=== PATIENT | female | born 1990 | race Caucasian/White ===

== ENCOUNTER 2017-07-05 20:47 | Emergency (ER) | payer OTHER ==
[2017-07-05 21:43] LABS: BASOPHIL % 0.3 % (0-2); PLATELET COUNT 235 x10^3mcL (130-400); RED CELL DISTRIBUTION WIDTH 12.9 % (11.5-14.5)
[2017-07-05 21:47] LABS: CALCIUM 8.3 mg/dL (8.5-10.1); CARBON DIOXIDE 26.7 mmol/L (21-32); CHLORIDE SERUM 103 mmol/L (98-107); CREATININE SERUM 0.7 mg/dL (0.6-1.0); GFR1 > 60 mL/min; GLUCOSE SERUM 106 mg/dL (74-106); POTASSIUM SERUM 3.3 mmol/L (3.5-5.1); SODIUM SERUM 138 mmol/L (136-145)
[2017-07-05 21:51] LABS: ALBUMIN 3.6 g/dL (3.4-5.0); ALKALINE PHOSPHATASE 86 U/L (46-116); ALT/SGPT 14 U/L (14-59); AMYLASE 26 U/L (25-115); AST/SGOT 14 U/L (15-37); BILIRUBIN TOTAL 0.7 mg/dL (0.20-1.00); LIPASE 73 IU/L (73-393); TOTAL PROTEIN, SERUM 7.5 g/dL (6.4-8.2)
[2017-07-05 22:21] VITALS: BP 92/65
== END 2017-07-05 22:21 | disposition home or self-care (01) ==
LOC: ED 20:47
PROVIDERS: Emergency Medicine
DX: R10.30 Lower abdominal pain, unspecified (principal); M54.5 Low back pain; R11.2 Nausea with vomiting, unspecified
CPT/HCPCS: 36415; J1885; Q0162

== ENCOUNTER 2017-12-28 16:29 | Emergency (ER) | payer OTHER ==
[~2017-12-28] VITALS: Ht 154.9 cm; Wt 62.1 kg
[2017-12-28 16:33] VITALS: Ht 154.9 cm; Wt 62.1 kg
[2017-12-28 18:14] VITALS: BP 106/70
== END 2017-12-28 19:10 | disposition home or self-care (01) ==
LOC: ED 16:29
DX: G43.909 Migraine, unspecified, not intractable, without status migrainosus (principal); R11.0 Nausea
CPT/HCPCS: J1885; J2765

== ENCOUNTER 2018-02-12 17:38 | Emergency (ER) | payer OTHER ==
[~2018-02-12] VITALS: Ht 162.6 cm; Wt 60.8 kg
[2018-02-12 20:02] VITALS: BP 115/71
== END 2018-02-12 20:02 | disposition home or self-care (01) ==
LOC: ED 17:38
DX: G43.909 Migraine, unspecified, not intractable, without status migrainosus (principal)
CPT/HCPCS: J1885; J2765; Q0162